=== PATIENT | female | born 1950 | race Caucasian/White ===

== ENCOUNTER 2021-11-10 13:05 | Emergency (ER) | payer MEDICARE, SELFPAY ==
--- NOTE | ~2021-11-10 | XR_ITS ---
EXAMINATION: XR wrist RT min 3V DATE: 11/10/2021 13:31 INDICATION: Right wrist injury and pain. TECHNIQUE: 4 views of right wrist were obtained. COMPARISON: None. FINDINGS: Bone alignment is normal. No fracture. There is mild osteoarthritis of triscaphe joint, fir st carpometacarpal joint, and third metacarpophalangeal joint. IMPRESSION: 1. Mild polyarticular osteoarthritis. Reviewed, dictated and finalized at location A. [facility]
--- NOTE | 2021-11-10 13:09 | ED.GENADULT ---
HPI - General Adult General Chief complaint: Extremity Injury, Upper Stated complaint: Fall Injury/Rignt Wrist Injury Time Seen by Provider: 11/10/21 13:09 Source: patient Mode of arrival: ambulatory Limitations: no limitations History of Present Illness HPI narrative: 71-year-old female patient presents to the [facility] with complaints of right wrist pain after falling last night. Patient states that she fell onto a tile floor. Patient states she has been taking Tylenol for pain denies icing the wrist since the injury. Related Data Home Medications Medication Instructions Recorded Confirmed carbidopa-levodopa 1 tablet PO TID 11/10/21 11/10/21 escitalopram oxalate 40 mg PO DAILY 11/10/21 11/10/21 lisinopril-hydrochlorothiazide 1 tablet PO DAILY 11/10/21 11/10/21 mirtazapine 15 mg PO HS 11/10/21 11/10/21 propranolol 60 mg PO Q12H 11/10/21 11/10/21 warfarin [Coumadin] 5 mg PO DAILY 11/10/21 11/10/21 warfarin [Coumadin] 5.5 mg PO 2XW 11/10/21 11/10/21 Allergies Allergy/AdvReac Type Severity Reaction Status Date / Time Sulfa (Sulfonamide Allergy Rash Verified 11/10/21 13:25 Antibiotics) Review of Systems Review of Systems: CONSTITUTIONAL: Denies fever, chills, or sweats. EYES: Denies visual changes, redness, or discharge. ENT: Denies rhinorrhea, congestion, sore throat, or otalgia. CARDIOVASCULAR: Denies chest pain, palpitations, or edema. RESPIRATORY: Denies cough or dyspnea. GASTROINTESTINAL: Denies abdominal pain, nausea, vomiting, or diarrhea. GENITOURINARY: Denies dysuria or hematuria. SKIN: Denies rash or itching. MUSCULOSKELETAL: Denies back pain, joint pain, or myalgia. Positive right wrist pain NEUROLOGIC: Denies headache, numbness, or weakness. PSYCHIATRIC: Denies anxiety or depression. PMFSH Comments At the time of my signature I agree with nursing past medical history, surgical, social, and family history. There is no relevant family history pertinent to the presenting complaint. Exam Narrative: GENERAL: Well-appearing, well-nourished, and in no acute distress. HEAD: Normocephalic, atraumatic. EYES: PERRLA and EOMI. ENT: Nares clear, no rhinorrhea or epistaxis. Mucous membranes moist. NECK: Supple. No lymphadenopathy CHEST: Clear to auscultation. No respiratory distress. HEART: Regular rate and rhythm. No murmur heard. Normal peripheral pulses. ABDOMEN: Soft, nontender, nondistended, normal active bowel sounds. EXTREMITIES: The R wrist is without obvious asymmetry or deformity when compared to the L wrist. No surface trauma, open wounds, swelling, or obvious deformity. No overlying erythema or warmth. No bony crepitus. Focal area of tenderness noted to the radial side of the right wrist. No scaphoid fullness or tenderness to direct palpation or axial load. Pain and decrease flex/extension, normal ulnar/radial deviation. Motor/sensory function of ulnar, radial, median nerves intact. Ulnar and radial pulses intact. Negaitve Phalen's/Tinel's sign. Negative Mirna test. SKIN: Warm, dry, no rash. NEURO: No focal deficits. Alert and oriented x3. Course Course Level of Care: Express Care Visit Reevaluation(s) Reevaluation #1: Reevaluated patient notified her that the x-ray is negative for any acute fractures. Notified her that this is most likely a bad sprain. We will go ahead put her in an Abdirahman wrap as well as encouraged her to continue icing and taking Tylenol as needed for pain. Date: 11/10/21 Time: 13:38 Vital Signs Vital signs: Vital Signs Temperature 36.6 C 11/10/21 13:14 Pulse Rate 63 11/10/21 13:14 Respiratory Rate 14 11/10/21 13:14 Blood Pressure 132/70 11/10/21 13:14 Pulse Oximetry 100 11/10/21 13:14 Temperature 36.6 C 11/10/21 13:14 Pulse Rate 63 11/10/21 13:14 Respiratory Rate 14 11/10/21 13:14 Blood Pressure 132/70 11/10/21 13:14 Pulse Oximetry 100 11/10/21 13:14 Vital signs reviewed Medical Decision Making Differential Diagnosis Differ
[2021-11-10 13:14] VITALS: BP 132/70; PULSE 63; RESP 14; TEMP 36.6; O2SAT 100
== END 2021-11-10 13:44 | disposition home or self-care (01) ==
PROVIDERS: Emergency Provider Nurse Practitioner Family; PCP Internal Medicine Infectious Disease
DX: S63.501A Unspecified sprain of right wrist, initial encounter (principal); S66.911A Strain of unspecified muscle, fascia and tendon at wrist and hand level, right hand, initial encounter; W19.XXXA Unspecified fall, initial encounter; G20 Parkinson's disease; Z86.718 Personal history of other venous thrombosis and embolism; Z86.711 Personal history of pulmonary embolism; Z96.651 Presence of right artificial knee joint; F41.9 Anxiety disorder, unspecified; F32.A Depression, unspecified; Z79.01 Long term (current) use of anticoagulants
CPT/HCPCS: 73110; 99213; G0463